=== PATIENT | female | born 1950 | race Caucasian/White ===

== ENCOUNTER 2020-05-21 17:48 | Emergency (ER) | payer MEDICARE, BC ==
[2020-05-21] MEDS ORDERED: Ketorolac 30 MG/ML SDV IVPUSH ONE (18:32)
--- NOTE | 2020-05-21 18:34 | EDM.PDOC ---
ED HPI GENERAL MEDICAL PROBLEM - General Chief Complaint: Flank Pain Stated Complaint: KIDNEY STONES Time Seen by Provider: 05/21/20 18:30 Source of Information: Reports: Patient History Limitations: Reports: No Limitations - History of Present Illness INITIAL COMMENTS - FREE TEXT/NARRATIVE: 69-year-old female with a history of kidney stones, has not had one for several years but developed fairly sudden onset of left flank pain 6 hours ago. She took some pain medication but is not helping, she is nauseated but not vomiting. No fevers or chills. Onset: Sudden Duration: Hour(s): (5 hours) Associated Symptoms: Reports: Other (Nausea but no vomiting) Left Flank Pain Score (Numeric/FACES): 8 - Related Data Allergies Allergy/AdvReac Type Severity Reaction Status Date / Time No Known Allergies Allergy Verified 05/21/20 18:08 Home Meds: Home Meds Glucosam/Chond/Collagen/Hyalur [Glucosamine Chondroitin] 2 each PO DAILY 02/06/13 [History] Metoprolol Succinate [Toprol XL] 100 mg PO DAILY 02/06/13 [History] Simvastatin [Zocor] 10 mg PO BEDTIME 02/06/13 [History] Zolpidem [Ambien] 10 mg PO BEDTIME PRN 02/06/13 [History] allopurinoL [Zyloprim] 100 mg PO DAILY 02/06/13 [History] Meloxicam 15 mg PO DAILY PRN 11/19/13 [History] lisinopriL [Lisinopril] 10 mg PO DAILY 05/21/20 [History] oxyCODONE HCl/Acetaminophen [Oxycodone-Acetaminophen 5-300] 1 each PO Q4HR PRN 05/21/20 [History] Past Medical History HEENT History: Reports: Sinusitis Cardiovascular History: Reports: High Cholesterol, Hypertension Genitourinary History: Reports: Pyelonephritis, Renal Calculus, UTI, Recurrent Other Genitourinary History: urinary stent in past [employer] History: Reports: Oncologic (Cancer) History: Reports: Non-Hodgkin's Lymphoma Other Dermatologic History: left leg cellulitis - Past Surgical History Other Cardiovascular Surgeries/Procedures: bilat RFA for varicose veins GI Surgical History: Reports: Cholecystectomy, Colonoscopy Female Surgical History: Reports: Lithotripsy/ESWL Musculoskeletal Surgical History: Reports: Arthroscopic Procedure Social & Family History - Tobacco Use Tobacco Use Status *Q: Never Tobacco User ED ROS GENERAL - Review of Systems Review Of Systems: See Below Constitutional: Reports: Malaise. Denies: Fever, Chills HEENT: Reports: No Symptoms Respiratory: Denies: Shortness of Breath Cardiovascular: Denies: Chest Pain GI/Abdominal: Reports: Abdominal Pain (Some left anterior abdominal discomfort as well), Nausea. Denies: Vomiting : Reports: Flank Pain (Left-sided), Urgency. Denies: Dysuria Neurological: Reports: No Symptoms Psychiatric: Reports: No Symptoms ED EXAM, GENERAL - Physical Exam Exam: See Below Exam Limited By: No Limitations General Appearance: Alert, Moderate Distress Respiratory/Chest: No Respiratory Distress, Lungs Clear Cardiovascular: Regular Rate, Rhythm GI/Abdominal: Tender (Reacts with some discomfort to palpation along the left abdomen but no guarding or rebound) Back Exam: No: CVA Tenderness (R), CVA Tenderness (L) Neurological: Alert, Oriented Psychiatric: Anxious Skin Exam: Warm, Dry Course - Vital Signs Last Recorded V/S: Last Vital Signs Temp 97.4 F 05/21/20 18:05 Pulse 77 05/21/20 19:05 Resp 16 05/21/20 19:05 BP 149/53 H 05/21/20 19:05 Pulse Ox 97 05/21/20 19:05 - Orders/Labs/Meds Meds: Medications Discontinued Medications Generic Name Dose Route Start Last Admin Trade Name Freq PRN Reason Stop Dose Admin Ketorolac Tromethamine 30 mg 05/21/20 18:32 05/21/20 18:44 Toradol IVPUSH 05/21/20 18:33 30 mg ONETIME ONE Administration Tamsulosin HCl 0.4 mg 05/21/20 19:08 05/21/20 19:25 Flomax PO 05/21/20 19:09 0.4 mg ONETIME ONE Administration - Re-Assessments/Exams Free Text/Narrative Re-Assessment/Exam: 05/21/20 18:41 IV was started and patient was given 30 mg of IV Toradol. CT of the abdomen and pelvis without contrast was ordered. 05/21/20 19:11 CT confirmed a distal left ureteral stone with moderate hydronephrosis. Patient was given 0.4 mg of oral Flomax and will be discharged with oral doses of Toradol to use through the weekend. If she develops intractable vomiting, uncontrolled pain or other concerns she can return for reassessment. Otherwise consider recheck next week if not improving satisfactorily. Departure - Departure Time of Disposition: 19:45 Disposition: Home, Self-Care 01 Clinical Impression: Ureteric colic, Kidney stone - Discharge Information Instructions: Kidney Stones, [id number] Referrals: PCP,None [Primary Care Provider] - Forms: ED Department Discharge Care Plan Goals: Take 1 Toradol pain medication every 5-6 hours for pain if needed, and add your stronger pain medications as needed as well. Stay hydrated and consider rechecking in 2 to 3 days if still having symptoms. Return sooner if worsening such as uncontrolled pain, persistent nausea and vomiting and unable to take your medications, or fever. Sepsis Event Note (ED) - Evaluation Sepsis Screening Result: No Definite Risk
[2020-05-21 19:06] VITALS: BP 149/53; PULSE 77
[2020-05-21] MEDS ORDERED: Tamsulosin 0.4 MG Cap.ER PO ONE (19:08)
--- NOTE | 2020-05-21 19:28 | CRLCT ---
INDICATION: left sided flank pain CT ABDOMEN AND PELVIS WITHOUT CONTRAST TECHNIQUE: Multidetector CT imaging was performed through the abdomen and pelvis without intravenous contrast administration. Coronal and sagittal reconstructions were generated. COMPARISON: 03/24/2016 CT abdomen and pelvis. FINDINGS: Lower chest: Minimal bibasilar lung atelectasis. Liver: Diffuse fatty infiltration of the liver. Gallbladder and bile ducts: Status post cholecystectomy, as before. No biliary dilation identified. Pancreas: Unremarkable. Spleen: Normal. Adrenals: No nodules or masses. Kidneys, ureters, and urinary bladder: 5 x 3 x 4 millimeter obstructing stone in the mid to distal left ureter approximately 6 centimeters above the ureterovesical junction, producing mild to moderate dilation of the proximal left ureter and mild to moderate left hydronephrosis. A few additional tiny nonobstructing left intrarenal stones are also present. No right hydronephrosis. No bladder mass or definite wall thickening. Gastrointestinal tract and abdominal wall: Normal caliber bowel without wall thickening or obstruction. The appendix is not identified. Very small fat-containing umbilical hernia. Vascular structures: Normal for age. Peritoneum: No free air, abscess, or significant free fluid. Lymph nodes: No pathologically enlarged nodes identified. Reproductive organs: No pelvic masses. Bones: Mild spinal degenerative changes. IMPRESSION: 1. Obstructing 5 x 3 x 4 millimeter stone in the mid to distal left ureter producing mild to moderate left hydroureteronephrosis. 2. Nonacute additional findings as detailed above. NOHELIA HODGES MD [facility] Dictated by Ab Hodges MD @ 05/21/2020 7:24:13 PM Dictated by: Ab Hodges MD @ 05/21/2020 19:27:44 (Electronically Signed)
== END 2020-05-21 19:49 | disposition home or self-care (01) ==
LOC: JP.ED 17:48
DX: N13.2 Hydronephrosis with renal and ureteral calculous obstruction (principal); I10 Essential (primary) hypertension; E78.00 Pure hypercholesterolemia, unspecified; Z79.899 Other long term (current) drug therapy
CPT/HCPCS: 74176; 96374; 99283; 99284-25; A9270-GY; J1885

== ENCOUNTER 2020-05-23 18:04 | Emergency (ER) | payer MEDICARE, BC ==
[2020-05-23] MEDS ORDERED: Acetaminophen 500 MG Tab PO ONE (18:40)
--- NOTE | 2020-05-23 18:50 | EDM.PDOC ---
ED HPI GENERAL MEDICAL PROBLEM - General Chief Complaint: Abdominal Pain Stated Complaint: KIDNEY STONES Time Seen by Provider: 05/23/20 18:45 Source of Information: Reports: Patient, Old Records, RN History Limitations: Reports: No Limitations - History of Present Illness INITIAL COMMENTS - FREE TEXT/NARRATIVE: 69 yo female recently dx with L sided kidney stone. Has not been straining her urine, but does not think she has passed the stone yet. Today developed fever and chills. No flank pain or dysuria. No other new sx's except a reported MAYNARD. Onset: Today (fever) Onset Date: 05/23/20 Duration: Waxing/Waning Location: Reports: Generalized Quality: Reports: Ache (LLQ to groin) Severity: Moderate Improves with: Reports: Medication (Toradol) Context: Reports: Other (See HPI) Associated Symptoms: Reports: Fever/Chills, Headaches. Denies: Confusion, Chest Pain, Cough, Nausea/Vomiting, Rash, Shortness of Breath, Syncope Treatments FISH CUTTER: Reports: NSAIDS (Toradol at 3 pm) Flank Pain Score (Numeric/FACES): 7 - Related Data Allergies Allergy/AdvReac Type Severity Reaction Status Date / Time No Known Allergies Allergy Verified 05/23/20 18:21 Home Meds: Home Meds Glucosam/Chond/Collagen/Hyalur [Glucosamine Chondroitin] 2 each PO DAILY 02/06/13 [History] Metoprolol Succinate [Toprol XL] 100 mg PO DAILY 02/06/13 [History] Simvastatin [Zocor] 10 mg PO BEDTIME 02/06/13 [History] Zolpidem [Ambien] 10 mg PO BEDTIME PRN 02/06/13 [History] allopurinoL [Zyloprim] 100 mg PO DAILY 02/06/13 [History] Meloxicam 15 mg PO DAILY PRN 11/19/13 [History] lisinopriL [Lisinopril] 10 mg PO DAILY 05/21/20 [History] oxyCODONE HCl/Acetaminophen [Oxycodone-Acetaminophen 5-300] 1 each PO Q4HR PRN 05/21/20 [History] Past Medical History HEENT History: Reports: Sinusitis Cardiovascular History: Reports: High Cholesterol, Hypertension Genitourinary History: Reports: Pyelonephritis, Renal Calculus, UTI, Recurrent Other Genitourinary History: urinary stent in past [employer] History: Reports: Oncologic (Cancer) History: Reports: Non-Hodgkin's Lymphoma Other Dermatologic History: left leg cellulitis - Past Surgical History Other Cardiovascular Surgeries/Procedures: bilat RFA for varicose veins GI Surgical History: Reports: Cholecystectomy, Colonoscopy Female Surgical History: Reports: Lithotripsy/ESWL Musculoskeletal Surgical History: Reports: Arthroscopic Procedure Other Musculoskeletal Surgeries/Procedures:: of knee Social & Family History - Family History Family Medical History: No Pertinent Family History - Tobacco Use Tobacco Use Status *Q: Never Tobacco User - Caffeine Use Caffeine Use: Reports: None - Recreational Drug Use Recreational Drug Use: No ED ROS GENERAL - Review of Systems Review Of Systems: See Below Constitutional: Reports: Fever, Chills. Denies: Malaise, Diaphoresis HEENT: Reports: No Symptoms Respiratory: Reports: No Symptoms Cardiovascular: Reports: No Symptoms GI/Abdominal: Reports: Other (Pain radiating toward her L groin at times). Denies: Black Stool, Constipation, Nausea, Vomiting : Denies: Dysuria, Flank Pain, Frequency, Hematuria, Urgency Musculoskeletal: Reports: No Symptoms Skin: Reports: No Symptoms Neurological: Reports: No Symptoms ED EXAM, RENAL/ - Physical Exam Exam: See Below Exam Limited By: No Limitations General Appearance: Alert, WD/WN, No Apparent Distress Eye Exam: Bilateral Eye: Normal Inspection Ears: Normal External Exam, Normal Canal, Hearing Grossly Normal, Normal TMs Nose: Normal Inspection, No Blood Throat/Mouth: Normal Inspection, Normal Lips, Normal Voice, No Airway Compromise Head: Atraumatic, Normocephalic Neck: Normal Inspection Respiratory/Chest: No Respiratory Distress, Lungs Clear, Normal Breath Sounds, No Accessory Muscle Use Cardiovascular: Regular Rate, Rhythm, No Edema GI/Abdominal: Normal Bowel Sounds, Soft, Non-Tender, No Distention Back Exam: Normal Inspection. No: CVA Tenderness (R), CVA Tenderness (L) Extremities: Normal Inspection, Normal Range of Motion, Non-Tender, No Pedal Edema Neurological: Alert, Oriented, CN II-XII Intact, Normal Cognition, No Motor/Sensory Deficits Psychiatric: Normal Affect, Normal Mood Skin Exam: Warm, Dry, Intact, Normal Color, No Rash Course - Vital Signs Text/Narrative:: Dr. Dorman, [facility], called @ Last Recorded V/S: Last Vital Signs Temp 38.4 C H 05/23/20 18:38 Pulse 84 05/23/20 19:38 Resp 20 05/23/20 19:38 BP 152/74 H 05/23/20 19:38 Pulse Ox 92 L 05/23/20 19:38 - Orders/Labs/Meds Orders: Active Orders 24 hr Category Date Time Status CULTURE URINE [RM] Stat Lab 05/23/20 18:25 Received NS + KCl 20mEq/L [Normal Saline with 20 mEq KCl] 1,000 Med 05/23/20 19:45 Active ml IV ASDIRECTED Medication Orders Potassium Chloride/Sodium Chloride (Normal Saline With 20 Meq Kcl) 1,000 mls @ 1,000 mls/hr IV ASDIRECTED SARA Last Admin: 05/23/20 19:46 Dose: 1,000 mls/hr Documented by: PAM Labs: Laboratory Tests 05/23/20 05/23/20 05/23/20 Range/Units 18:25 18:57 18:57 WBC 11.9 H (4.5-11.0) K/uL RBC 4.55 (3.30-5.50) M/uL Hgb 13.1 (12.0-15.0) g/dL Hct 40.2 (36.0-48.0) % MCV 88 (80-98) fL MCH 29 (27-31) pg MCHC 33 (32-36) % Plt Count 171 (150-400) K/uL Sodium (140-148) mmol/L Potassium (3.6-5.2) mmol/L Chloride (100-108) mmol/L Carbon Dioxide (21-32) mmol/L Anion Gap (5.0-14.0) mmol/L BUN (7-18) mg/dL Creatinine (0.6-1.0) mg/dL Est Cr Clr Drug Dosing mL/min Estimated GFR (MDRD) (>60) Glucose (74-106) mg/dL Lactic Acid 0.7 (0.4-2.0) mmol/L Calcium (8.5-10.1) mg/dL Urine Color Yellow (YELLOW) Urine Appearance Cloudy A (CLEAR) Urine pH 6.0 (5.0-8.0) Ur Specific [place] 1.015 (1.008-1.030) Urine Protein 30 H (NEGATIVE) mg/dL Urine Glucose (UA) Negative (NEGATIVE) mg/dL Urine Ketones Negative (NEGATIVE) mg/dL Urine Occult Blood Moderate H (NEGATIVE) Urine Nitrite Positive H (NEGATIVE) Urine Bilirubin Negative (NEGATIVE) Urine Urobilinogen 0.2 (0.2-1.0) EU/dL Ur Leukocyte Esterase Large H (NEGATIVE) Urine RBC 0-5 (0-5) Urine WBC Packed H (0-5) Ur Epithelial Cells Rare Urine Bacteria Many 05/23/20 Range/Units 18:57 WBC (4.5-11.0) K/uL RBC (3.30-5.50) M/uL Hgb (12.0-15.0) g/dL Hct (36.0-48.0) % MCV (80-98) fL MCH (27-31) pg MCHC (32-36) % Plt Count (150-400) K/uL Sodium 137 L (140-148) mmol/L Potassium 3.5 L (3.6-5.2) mmol/L Chloride 100 (100-108) mmol/L Carbon Dioxide 25 (21-32) mmol/L Anion Gap 15.5 H (5.0-14.0) mmol/L BUN 20 H (7-18) mg/dL Creatinine 0.9 (0.6-1.0) mg/dL Est Cr Clr Drug Dosing 44.90 mL/min Estimated GFR (MDRD) > 60 (>60) Glucose 127 H (74-106) mg/dL Lactic Acid (0.4-2.0) mmol/L Calcium 8.5 (8.5-10.1) mg/dL Urine Color (YELLOW) Urine Appearance (CLEAR) Urine pH (5.0-8.0) Ur Specific [place] (1.008-1.030) Urine Protein (NEGATIVE) mg/dL Urine Glucose (UA) (NEGATIVE) mg/dL Urine Ketones (NEGATIVE) mg/dL Urine Occult Blood (NEGATIVE) Urine Nitrite (NEGATIVE) Urine Bilirubin (NEGATIVE) Urine Urobilinogen (0.2-1.0) EU/dL Ur Leukocyte Esterase (NEGATIVE) Urine RBC (0-5) Urine WBC (0-5) Ur Epithelial Cells Urine Bacteria Meds: Medications Generic Name Dose Route Start Last Admin Trade Name Freq PRN Reason Stop Dose Admin Potassium Chloride/Sodium Chloride 1,000 mls @ 1,000 mls/hr 05/23/20 19:45 05/23/20 19:46 Normal Saline With 20 Meq Kcl IV 1,000 mls/hr ASDIRECTED SARA Administration Discontinued Medications Generic Name Dose Route Start Last Admin Trade Name Pattie PRN Reason Stop Dose Admin Acetaminophen 1,000 mg 05/23/20 18:40 05/23/20 18:53 Tylenol Extra Strength PO 05/23/20 18:41 1,000 mg ONETIME ONE Administration Ceftriaxone Sodium 1 gm/ 50 mls @ 100 mls/hr 05/23/20 19:33 05/23/20 19:47 Sodium Chloride IV 05/23/20 20:02 100 mls/hr ONETIME ONE Administration - Radiology Interpretation Free Text/Narrative:: Abd/pelvis CT no contrast-Impression : 6 mm stone distal left ureter with moderate left hydroureteronephrosis. CT Results Date: 05/23/20 CT Results Time: 20:00 Departure - Departure Time of Disposition: 20:40 Disposition: Home, Self-Care 01 Condition: Fair Clinical Impression: Ureterolithiasis UTI (urinary tract infection) Qualifiers: Urinary tract infection type: site unspecified Hematuria presence: without hematuria Qualified Code(s): N39.0 - Urinary tract infection, site not specified - Discharge Information *PRESCRIPTION DRUG MONITORING PROGRAM REVIEWED*: Not Applicable *COPY OF PRESCRIPTION DRUG MONITORING REPORT IN PATIENT [place]IMA: Not Applicable Referrals: PCP,None [Primary Care Provider] - Forms: ED Department Discharge Additional Instructions: You may take your meds with just enough water to get them down. NPO otherwise after midnight. Dr. Dorman, urologist, will call you in the morning to make plans for you to see him in [place] tomorrow. Return as needed. Sepsis Event Note (ED) - Evaluation Sepsis Screening Result: Possible Sepsis Risk - Focused Exam Vital Signs: Vital Signs Temp Pulse Resp BP Pulse Ox 05/23/20 19:38 84 20 152/74 H 92 L 05/23/20 18:38 38.4 C H 96 20 168/77 H 93 L 05/23/20 18:18 38.4 C H 96 20 168/77 H 93 L - My Orders Last 24 Hours: My Active Orders 05/23/20 18:25 CULTURE URINE [RM] Stat 05/23/20 19:45 NS + KCl 20mEq/L [Normal Saline with 20 mEq KCl] 1,000 ml IV ASDIRECTED - Assessment/Plan Last 24 Hours: My Active Orders 05/23/20 18:25 CULTURE URINE [RM] Stat 05/23/20 19:45 NS + KCl 20mEq/L [Normal Saline with 20 mEq KCl] 1,000 ml IV ASDIRECTED
[2020-05-23] MEDS ORDERED: cefTRIAXone 1 GM in Sodium Chloride 0.9% 50 ML IV ONE (19:33)
[2020-05-23 19:39] VITALS: BP 152/74; PULSE 84
[2020-05-23] MEDS ORDERED: NS + KCl 20mEq/L 1,000 ML IV SCH (19:45)
--- NOTE | 2020-05-23 20:00 | CRLCT ---
HISTORY: Recent kidney stones. Fever today. COMPARISON: 05/21/2020. TECHNIQUE: Noncontrast axial images were obtained through the abdomen and pelvis. FINDINGS: Minimal linear scarring or atelectasis in the left lower lung. 6 mm stone distal left ureter with moderate left hydroureteronephrosis. Mild left perinephric fluid stranding. The liver, spleen, pancreas, adrenal glands and right kidney are within normal on this noncontrast exam. The bowel is normal in caliber. No lymphadenopathy or ascites. Bilateral L5 pars defect. Impression : 6 mm stone distal left ureter with moderate left hydroureteronephrosis. Please note that all CT scans at this facility use dose modulation, iterative reconstruction, and/or weight-based dosing when appropriate to reduce radiation dose to as low as reasonably achievable. Dictated by Mandi Salazar MD @ May 23 2020 7:38PM Signed by Dr. Mandi Salazar @ May 23 2020 7:58PM
== END 2020-05-23 21:14 | disposition home or self-care (01) ==
LOC: JP.ED 18:04
DX: N39.0 Urinary tract infection, site not specified (principal); N13.2 Hydronephrosis with renal and ureteral calculous obstruction; I10 Essential (primary) hypertension; E78.00 Pure hypercholesterolemia, unspecified; Z79.899 Other long term (current) drug therapy
CPT/HCPCS: 36415; 74176; 80048; 81001; 83605; 85027; 87086; 87088; 87186; 96365; 96368; 99284; A9270; J0696; J3480; J7050

== ENCOUNTER 2022-01-03 10:35 | Emergency (ER) | payer MEDICARE, BC ==
[2022-01-03] MEDS ORDERED: Ketorolac 30 MG/ML SDV IM ONE (11:05)
[2022-01-03] MEDS ORDERED: cefTRIAXone 1 GM in Sodium Chloride 0.9% 50 ML IV ONE (12:36)
[2022-01-03] MEDS ORDERED: Sodium Chloride 0.9% 1,000 ML IV SCH (12:45)
[2022-01-03 13:40] VITALS: BP 177/90; PULSE 83
== END 2022-01-03 13:51 ==
LOC: JP.ED 10:35
DX: N23 Unspecified renal colic (principal); N39.0 Urinary tract infection, site not specified; E78.00 Pure hypercholesterolemia, unspecified; I10 Essential (primary) hypertension; Z79.899 Other long term (current) drug therapy; Z90.49 Acquired absence of other specified parts of digestive tract; Z20.822 Contact with and (suspected) exposure to COVID-19
CPT/HCPCS: 36415; 74176; 80048; 81001; 85025; 87086; 87088; 87186; 96365; 96372; 99284; 99285; J0696; J1885; J7030; U0002

== ENCOUNTER 2023-10-06 13:20 | Emergency (ER) | payer MEDICARE, BC ==
[2023-10-06 14:06] LABS: APPEARANCE,URINE SLIGHTLY CLOUDY (CLEAR); BILIRUBIN,URINE NEGATIVE (NEGATIVE); COLOR,URINE YELLOW (YELLOW); GLUCOSE,URINE NEGATIVE (NEGATIVE); KETONES,URINE NEGATIVE (NEGATIVE); LEUKOCYTE ESTERASE,URINE LARGE (NEGATIVE); NITRITE,URINE NEGATIVE (NEGATIVE); OCCULT BLOOD,URINE SMALL (NEGATIVE); PH,URINE 8.5 (5.0-8.0); PROTEIN,URINE 30 mg/dL (NEGATIVE); UROBILINOGEN,URINE 0.2 EU/dL (0.2-1.0)
[2023-10-06 14:12] LABS: AMORPHOUS SEDIMENT,URINE NOT SEEN; BACTERIA,URINE MANY; EPITHELIAL CELLS,URINE FEW; MUCUS,URINE NOT SEEN; WBC,URINE >100 (0-5)
[2023-10-06 14:29] LABS: BASOPHILS ABSOLUTE AUTO 0.06 K/uL (0.00-0.10); BASOPHILS PERCENT AUTO 0.4 % (0.1-1.3); EOSINOPHILS PERCENT AUTO 1.3 % (0.0-5.4); HEMATOCRIT 40.7 % (34.3-46.0); HEMOGLOBIN 13.9 g/dL (11.2-15.5); IMMATURE GRAN ABSOLUTE AUTO 0.05 K/uL (0.00-0.23); IMMATURE GRAN PERCENT AUTO 0.3 % (0.0-0.7); LYMPHOCYTES ABSOLUTE AUTO 2.45 K/uL (0.8-3.3); LYMPHOCYTES PERCENT AUTO 15.9 % (11.4-47.7); MEAN CORPUSCULAR HEMOGLOBIN 29.4 pg (31.6-35.5); MEAN CORPUSCULAR HGB CONC 34.2 g/dL (31.6-35.5); MEAN CORPUSCULAR VOLUME 86.2 fL (81.4-99.0); MONOCYTES ABSOLUTE AUTO 1.06 K/uL (0.20-0.90); MONOCYTES PERCENT AUTO 6.9 % (3.3-12.6); NEUTROPHILS ABSOLUTE AUTO 11.61 K/uL (1.0-7.6); NEUTROPHILS PERCENT AUTO 75.2 % (40.0-78.1); PLATELET COUNT,PLT 223 K/uL (130-375); RED BLOOD CELL COUNT 4.72 M/uL (3.77-5.24); WHITE BLOOD CELL COUNT,WBC 15.4 K/uL (3.2-11.0)
[2023-10-06] MEDS: Sodium Chloride 0.9% 1,000 ML IV SCH (14:38)
[2023-10-06] MEDS: Ketorolac 30 MG/ML SDV IVPUSH ONE (14:45)
[2023-10-06 14:49] LABS: A/G RATIO 1.1 (1.2-2.2); ALANINE AMINOTRANSFERASE,ALT 36 U/L (12-78); ALBUMIN 3.8 g/dL (3.4-5.0); ALKALINE PHOSPHATASE 95 U/L (46-116); ASPARTATE AMNIOTRANSFERASE,AST 33 U/L (15-37); BILIRUBIN TOTAL 0.9 mg/dL (0.2-1.0); BLOOD UREA NITROGEN,BUN 14 mg/dL (7-18); CALCIUM 9.6 mg/dL (8.5-10.1); CARBON DIOXIDE,CO2 28 mmol/L (21-32); CHLORIDE,CL 103 mmol/L (100-108); CREATININE 0.8 mg/dL (0.6-1.0); EST CRCL DRUG DOSING (CG) 54.08 mL/min; ESTIMATED GFR 78 mL/min (>60); GLUCOSE RANDOM 134 mg/dL (74-106); POTASSIUM,K 4.5 mmol/L (3.6-5.2); PROTEIN TOTAL,TP 7.3 g/dL (6.4-8.2); SODIUM,NA 139 mmol/L (140-148)
[2023-10-06 14:53] LABS: ANION GAP 12.5 mmol/L (5.0-14.0)
[2023-10-06] MEDS: cefTRIAXone 1 GM in Sodium Chloride 0.9% 50 ML IV ONE (15:16)
[2023-10-06] MEDS: Ondansetron 4 MG/2 ML SDV IVPUSH ONE (15:17)
[2023-10-06 17:06] VITALS: BP 123/58; PULSE 77
== END 2023-10-06 17:27 | disposition home or self-care (01) ==
LOC: JP.ED 13:20
DX: N23 Unspecified renal colic (principal); N39.0 Urinary tract infection, site not specified; I10 Essential (primary) hypertension; E78.00 Pure hypercholesterolemia, unspecified; Z90.49 Acquired absence of other specified parts of digestive tract; Z79.899 Other long term (current) drug therapy
CPT/HCPCS: 36415; 74176; 80053; 81001; 85025; 96361; 96365; 96366; 96375; 99284; J0696; J1885; J2405; J3490; J7030

== ENCOUNTER 2023-10-19 20:56 | Emergency (ER) | payer MEDICARE, BC ==
[2023-10-19 21:06] VITALS: BP 174/73; PULSE 80
[2023-10-19] MEDS: Tamsulosin 0.4 MG Cap.ER PO ONE (21:50)
[2023-10-19] MEDS: Ketorolac 30 MG/ML SDV IVPUSH ONE (21:50)
[2023-10-19] MEDS: Ondansetron 4 MG/2 ML SDV IVPUSH ONE (21:50)
[2023-10-19] MEDS: Sodium Chloride 0.9% 1,000 ML IV SCH (21:56)
[2023-10-19 21:59] LABS: CALCIUM 9.5 mg/dL (8.5-10.1); CREATININE 1.1 mg/dL (0.6-1.0); EST CRCL DRUG DOSING (CG) 39.33 mL/min
[2023-10-19 22:32] LABS: APPEARANCE,URINE TURBID (CLEAR); BILIRUBIN,URINE NEGATIVE (NEGATIVE); COLOR,URINE RED (YELLOW); GLUCOSE,URINE NEGATIVE (NEGATIVE); KETONES,URINE NEGATIVE (NEGATIVE); NITRITE,URINE NEGATIVE (NEGATIVE); PROTEIN,URINE >=300 mg/dL (NEGATIVE); UROBILINOGEN,URINE 0.2 EU/dL (0.2-1.0)
[2023-10-19 22:34] LABS: RBC,URINE >100 (0-5); WBC,URINE 30-40 (0-5)
[2023-10-19 22:35] LABS: AMORPHOUS SEDIMENT,URINE NOT SEEN; BACTERIA,URINE MANY; EPITHELIAL CELLS,URINE FEW; MUCUS,URINE FEW; OCCULT BLOOD,URINE LARGE (NEGATIVE)
[2023-10-19 22:36] LABS: LEUKOCYTE ESTERASE,URINE TRACE (NEGATIVE)
[2023-10-19] MEDS: cefTRIAXone 2 GM in Sodium Chloride 0.9% 50 ML IV ONE (23:01)
== END 2023-10-19 23:47 | disposition home or self-care (01) ==
LOC: JP.ED 20:56
DX: N20.1 Calculus of ureter (principal); I10 Essential (primary) hypertension; E78.00 Pure hypercholesterolemia, unspecified; Z98.890 Other specified postprocedural states; Z79.899 Other long term (current) drug therapy; Z87.442 Personal history of urinary calculi
CPT/HCPCS: 36415; 80048; 81001; 87086; 96361; 96365; 96375; 99284; A9270; J0696; J1885; J2405; J3490; J7030; 99283